=== PATIENT | male | born 1990 | race Hispanic/Latino ===

== ENCOUNTER 2022-06-27 14:19 | Emergency (ER) | payer BC, SELFPAY ==
[2022-06-27 15:02] LABS: Absolute Lymphocytes (CBC) 1.9 K/uL (0.7-4.9); Hematocrit 45.9 % (39.6-49.0); Lymphocytes % 22.2 % (15.3-44.8); MCV 87.5 fL (80-100); RBC Red Blood Cell Count 5.25 M/uL (4.33-5.43)
[2022-06-27 15:03] LABS: Protime INR 0.99
[2022-06-27 15:18] LABS: Albumin 3.6 g/dL (3.4-5.0); Bilirubin Direct 0.2 mg/dL (0-0.2); Bilirubin Total 0.5 mg/dL (0.2-1.0); Magnesium 2.1 mg/dL (1.6-2.4); Potassium 3.9 mEq/L (3.5-5.1); Protein, Total 7.8 g/dL (6.4-8.2); Troponin High Sensitivity 4.7 pg/mL (<58.9)
--- NOTE | 2022-06-27 16:08 | RAD REPORT ---
EXAM DESCRIPTION: Timothy Single View06/27/2022 3:27 pm CLINICAL HISTORY: Chest pain COMPARISON: none FINDINGS: The lungs appear clear of acute infiltrate. The heart is normal size IMPRESSION: No acute abnormalities displayed
[2022-06-27] MEDS ORDERED: ASPIRIN 81 MG CHEWABLE TABLET ONE (16:11)
[2022-06-27] MEDS ORDERED: PANTOPRAZOLE 40 MG INJ ONE (16:11)
--- NOTE | 2022-06-27 16:12 | ER ---
Nurse's Notes [facility] Name: Luis Quesada Age: 32 yrs Sex: Male : 1990 Arrival Date: 06/27/2022 Time: 14:19 Bed 10 Private MD: Diagnosis: Essential (primary) hypertension;Epigastric pain Presentation: 06/27 14:43 Chief complaint: Patient states: Midsternal ''discomfort", increased with stretching, jl7 and high blood pressure since yesterday. Went to clinic and they sent here for 161/110, unknown medication given while at clinic current BP 138/89 in triage. Coronavirus screen: At this time, the client does not indicate any symptoms associated with coronavirus-19. Ebola Screen: No symptoms or risks identified at this time. Initial Sepsis Screen: Does the patient meet any 2 criteria? No. Patient's initial sepsis screen is negative. Does the patient have a suspected source of infection? No. Patient's initial sepsis screen is negative. Risk Assessment: Do you want to hurt yourself or someone else? Patient reports no desire to harm self or others. Onset of symptoms was June 26, 2022. 14:43 Method Of Arrival: Ambulatory jl7 14:43 Acuity: ANSELMO 3 jl7 Triage Assessment: 14:48 General: Appears in no apparent distress. uncomfortable, Behavior is calm, cooperative, jl7 appropriate for age. Pain: Complains of pain in mid-sternal area Pain currently is 1 out of 10 on a pain scale. Neuro: Level of Consciousness is awake, alert, obeys commands, Oriented to person, place, time, situation. Cardiovascular: Patient's skin is warm and dry. Respiratory: Airway is patent Respiratory effort is even, unlabored, Respiratory pattern is regular, symmetrical. Derm: Skin is pink, warm \\T\\ dry. Historical: - Allergies: 14:48 No Known Allergies; jl7 - Home Meds: 14:48 None [Active]; jl7 - PMHx: 14:48 None; jl7 - PSHx: 14:48 None; jl7 - Immunization history:: Adult Immunizations unknown. - Social history:: Smoking status: Patient denies any tobacco usage or history of. Patient uses alcohol, on a daily basis. claims drinking about a 6 pack/day. Screenin:54 [facility] ED Fall Risk Assessment (Adult) History of falling in the last 3 months, mb9 including since admission No falls in past 3 months (0 pts) Confusion or Disorientation No (0 pts) Intoxicated or Sedated No (0 pts) Impaired Gait No (0 pts) Mobility Assist Device Used No (0 pt) Altered Elimination No (0 pt) Score/Fall Risk Level 0 - 2 = Low Risk Oriented to surroundings, Maintained a safe environment, Educated pt \\T\\ family on fall prevention, incl call for assistance when getting out of bed. Abuse screen: Denies threats or abuse. Nutritional screening: No deficits noted. Tuberculosis screening: No symptoms or risk factors identified. Assessment: 14:54 General: Appears uncomfortable, Behavior is cooperative. Pain: Complains of pain in mb9 chest Pain currently is 1 out of 10 on a pain scale. Quality of pain is described as pressure, Pain began suddenly. Neuro: Level of Consciousness is awake, alert, obeys commands, Oriented to person, place, time, situation, Appropriate for age. Cardiovascular: Heart tones S1 S2 present Patient's skin is warm and dry. Rhythm is regular. Cardiovascular:. Respiratory: Airway is patent Respiratory effort is even, unlabored, Respiratory pattern is regular, symmetrical, Breath sounds are clear bilaterally. GI: Abdomen is round non-distended. : No signs and/or symptoms were reported regarding the genitourinary system. Derm: Skin is pink, warm \\T\\ dry. Musculoskeletal: Range of motion: intact in all extremities. 16:09 Reassessment: No changes from previously documented assessment. Patient and/or family mb9 updated on plan of care and expected duration. Pain level reassessed. Patient is alert, oriented x 3, equal unlabored respirations, skin warm/dry/pink. 16:24 Reassessment: Patient states feeling better. Patient states symptoms have improved. mb9 Vital Signs: 14:43 BP 138 / 89; Pulse 78; Resp 15; Temp 98.3; Pulse Ox 99% ; Weight 104.33 kg; Height 5 jl7 ft. 8 in. ; Pain 03/11; 16:09 BP 126 / 78; Pulse 73; Resp 16; Pulse Ox 99% ; mb9 14:43 Body Mass Index 34.97 (104.33 kg, 172.72 cm) [facility] 14:43 Pain Scale: Adult jl7 ED Course: 14:24 Patient arrived in ED. ts1 14:37 Zena Riddle, RN is Primary Nurse. mb9 14:39 Kesha Warren FNP-C is [facility]. snw 14:39 Tevin Greer DO is Attending Physician. snw 14:47 Triage completed. jl7 14:48 Arm band placed on right wrist. jl7 14:53 EKG done, by ED staff, reviewed by Kesha REAL. Inserted saline lock: 20 gauge mb9 in right antecubital area, using aseptic technique. 14:54 Placed in gown. Bed in low position. Call light in reach. Side rails up X 1. Client mb9 placed on continuous cardiac and pulse oximetry monitoring. NIBP monitoring applied. quality assurance monitor final on. 14:54 Basic Metabolic Panel Sent. mb9 14:54 CBC with Diff Sent. mb9 14:54 LFT's Sent. mb9 14:54 Magnesium Sent. mb9 14:54 NT PRO-BNP Sent. mb9 14:54 PT-INR Sent. mb9 14:54 Troponin HS Sent. mb9 14:54 No provider procedures requiring assistance completed. mb9 15:28 XRAY Chest (1 view) In Process Unspecified. EDMS 16:17 IV discontinued, intact, bleeding controlled, No redness/swelling at site. Pressure mb9 dressing applied. Administered Medications: 16:08 Drug: Aspirin PO Chewable Tablet 324 mg Route: PO; mb9 16:09 Drug: Pantoprazole IVP 40 mg Route: IVP; Site: right antecubital; mb9 Medication: 14:54 VIS not applicable for this client. mb9 Outcome: 16:11 Discharge ordered by . snw 16:17 Discharged to home ambulatory. mb9 16:17 Condition: stable 16:17 Discharge instructions given to patient, Instructed on discharge instructions, follow up and referral plans. Demonstrated understanding of instructions, follow-up care, medications, Prescriptions given X 1. 16:24 Patient left the ED. mb9 Signatures: Dispatcher [employer] EDMS Kesha Warren FNP-C FNP-Alvarado Batres RN RN jl7 Zena Riddle, RN RN mb9 Italia Giles PAS PAS ts1
--- NOTE | 2022-06-27 16:12 | EDPHYS ---
Physician Documentation [facility] Name: Luis Quesada Age: 32 yrs Sex: Male : 1990 Arrival Date: 06/27/2022 Time: 14:19 Bed 10 Private MD: ED Physician Tevin Greer HPI: 06/27 16:01 This 32 yrs old Male presents to ER via Ambulatory with complaints of High snw Blood Pressure. 16:01 The patient has elevated blood pressure and discovered this at home, with a home snw device. Onset: The symptoms/episode began/occurred suddenly, yesterday. Modifying factors: The symptoms are aggravated by nothing, pt did not feel normal so took his bp and noted it was elevated 150s SBP. Onset: The symptoms/episode began/occurred acutely. Associated signs and symptoms: Pertinent positives: pt states he has had burning in his chest. Severity of symptoms: At its worst the blood pressure was 160 mm Hg. The patient has not experienced similar symptoms in the past. pt went to the Clinic and they sent him to ED for eval. Historical: - Allergies: 14:48 No Known Allergies; jl7 - Home Meds: 14:48 None [Active]; jl7 - PMHx: 14:48 None; jl7 - PSHx: 14:48 None; jl7 - Immunization history:: Adult Immunizations unknown. - Social history:: Smoking status: Patient denies any tobacco usage or history of. Patient uses alcohol, on a daily basis. claims drinking about a 6 pack/day. ROS: 16:03 Constitutional: Negative for fever, chills, and weight loss, Eyes: Negative for injury, snw pain, redness, and discharge, ENT: Negative for injury, pain, and discharge, Neck: Negative for injury, pain, and swelling, Cardiovascular: Negative for palpitations and edema, positive for chest pain (burning) Respiratory: Negative for shortness of breath, cough, wheezing, and pleuritic chest pain, Abdomen/GI: Negative for abdominal pain, nausea, vomiting, diarrhea, and constipation, Back: Negative for injury and pain, : Negative for injury, bleeding, discharge, and swelling, MS/Extremity: Negative for injury and deformity, Skin: Negative for injury, rash, and discoloration, Neuro: Negative for headache, weakness, numbness, tingling, and seizure, Psych: Negative for depression, anxiety, suicide ideation, homicidal ideation, and hallucinations. Exam: 16:02 Constitutional: This is a well developed, well nourished patient who is awake, alert, snw and in no acute distress. Head/Face: Normocephalic, atraumatic. Eyes: Pupils equal round and reactive to light, extra-ocular motions intact. Lids and lashes normal. Conjunctiva and sclera are non-icteric and not injected. Cornea within normal limits. Periorbital areas with no swelling, redness, or edema. ENT: Nares patent. No nasal discharge, no septal abnormalities noted. Tympanic membranes are normal and external auditory canals are clear. Oropharynx with no redness, swelling, or masses, exudates, or evidence of obstruction, uvula midline. Mucous membranes moist. Neck: Trachea midline, no thyromegaly or masses palpated, and no cervical lymphadenopathy. Supple, full range of motion without nuchal rigidity, or vertebral point tenderness. No Meningismus. Chest/axilla: Normal chest wall appearance and motion. Nontender with no deformity. No lesions are appreciated. Cardiovascular: Regular rate and rhythm with a normal S1 and S2. No gallops, murmurs, or rubs. Normal PMI, no JVD. No pulse deficits. Respiratory: Lungs have equal breath sounds bilaterally, clear to auscultation and percussion. No rales, rhonchi or wheezes noted. No increased work of breathing, no retractions or nasal flaring. Abdomen/GI: Soft, non-tender, with normal bowel sounds. No distension or tympany. No guarding or rebound. No evidence of tenderness throughout. Back: No spinal tenderness. No costovertebral tenderness. Full range of motion. Skin: Warm, dry with normal turgor. Normal color with no rashes, no lesions, and no evidence of cellulitis. MS/ Extremity: Pulses equal, no cyanosis. Neurovascular intact. Full, normal range of motion. Neuro: Awake and alert, GCS 15, oriented to person, place, time, and situation. Cranial nerves II-XII grossly intact. Motor strength 5/5 in all extremities. Sensory grossly intact. Cerebellar exam normal. Normal gait. Psych: Awake, alert, with orientation to person, place and time. Behavior, mood, and affect are within normal limits. Vital Signs: 14:43 BP 138 / 89; Pulse 78; Resp 15; Temp 98.3; Pulse Ox 99% ; Weight 104.33 kg; Height 5 jl7 ft. 8 in. ; Pain 1/10; 16:09 BP 126 / 78; Pulse 73; Resp 16; Pulse Ox 99% ; mb9 14:43 Body Mass Index 34.97 (104.33 kg, 172.72 cm) 7 14:43 Pain Scale: Adult jl7 MDM: 14:39 Patient medically screened. snw 16:15 Data interpreted: Pulse oximetry: on room air is 99 %. Interpretation: normal. Data snw reviewed: vital signs, nurses notes, lab test result(s), EKG, radiologic studies. Counseling: I had a detailed discussion with the patient and/or guardian regarding: the historical points, exam findings, and any diagnostic results supporting the discharge/admit diagnosis, the presence of at least one elevated blood pressure reading (>120/80) during this emergency department visit, lab results, radiology results, the need for outpatient follow up, for definitive care, to return to the emergency department if symptoms worsen or persist or if there are any questions or concerns that arise at home. Response to treatment: the patient's symptoms have mildly improved after treatment. Special discussion: Based on the patient's history, exam, and Dx evaluation, there is no indication for emergent intervention or inpatient Tx. It is understood by the patient/guardian that if the Sx's persist or worsen they need to return immediately for re-evaluation. Based on the patient's Hx, exam, and Dx evaluation, there is no indication for emergent surgery or inpatient Tx. It is understood by the patient/guardian that if the Sx's persist or worsen they need to return immediately for re-evaluation. I have referred the patient to see his PCP for further evaluation of high blood pressure. Based on the history and exam findings, there is no indication for further emergent testing or inpatient evaluation. I discussed with the patient/guardian the need to see the primary care provider for further evaluation of the symptoms. 06/27 14:40 Order name: Basic Metabolic Panel; Complete Time: 15:22 snw 06/27 14:40 Order name: CBC with Diff; Complete Time: 15:22 snw 06/27 14:40 Order name: LFT's; Complete Time: 15:22 snw 06/27 14:40 Order name: Magnesium; Complete Time: 15:22 w 06/27 14:40 Order name: NT PRO-BNP; Complete Time: 15:22 w 06/27 14:40 Order name: PT-INR; Complete Time: 15:04 06/27 14:40 Order name: Troponin HS; Complete Time: 15:22 w 06/27 14:40 Order name: XRAY Chest (1 view); Complete Time: 16:10 06/27 14:40 Order name: EKG; Complete Time: 14:41 06/27 14:40 Order name: Cardiac monitoring; Complete Time: 14:53 06/27 14:40 Order name: EKG - Nurse/Tech; Complete Time: 14:54 06/27 14:40 Order name: IV Saline Lock; Complete Time: 14:54 06/27 14:40 Order name: Labs collected and sent; Complete Time: 14:54 06/27 14:40 Order name: O2 Per Protocol; Complete Time: 14:54 06/27 14:40 Order name: O2 Sat Monitoring; Complete Time: 14:54 snw Administered Medications: 16:08 Drug: Aspirin PO Chewable Tablet 324 mg Route: PO; mb9 16:09 Drug: Pantoprazole IVP 40 mg Route: IVP; Site: right antecubital; mb9 Disposition: 19:34 Co-signature as Attending Physician, Tevin VASQUEZ was immediately available on-site ms3 in the Emergency Department for consultation in the care of the patient. Disposition Summary: 06/27/22 16:11 Discharge Ordered Location: Home snw Condition: Stable snw Diagnosis - Essential (primary) hypertension snw - Epigastric pain snw Followup: snw - With: Emergency Department - When: As needed - Reason: Worsening of condition Followup: snw - With: Private Physician - When: 2 - 3 days - Reason: Recheck today's complaints, Continuance of care, Re-evaluation by your physician Discharge Instructions: - Discharge Summary Sheet snw - Food Choices for Gastroesophageal Reflux Disease, Adult snw - Gastroesophageal Reflux Disease, Adult snw - Hypertension, Adult snw - DASH Eating Plan snw - Rehydration, Adult snw - Managing Your Hypertension snw - Form - Blood Pressure Record Sheet snw Forms: - Work release form snw - Medication Reconciliation Form snw - Thank You Letter snw - Antibiotic Education snw - Prescription Opioid Use snw Prescriptions: - Protonix 40 mg Oral Tablet - take 1 tablet by ORAL route once daily; 30 tablet; Refills: 0, Product snw Selection Permitted Signatures: Dispatcher [employer] EDMS Kesha Warren FNP-C [employer]nw Alvarado Ritter RN RN jl7 Tevin Greer DO DO ms3 Zena Riddle RN RN mb9
[2022-06-27 16:29] VITALS: TEMP 98.3; O2SAT 99
[2022-06-27 16:31] VITALS: BP 126/78
--- NOTE | 2022-06-28 15:20 | EKG ---
Test Date: 2022-06-27 Test Time: 14:45:19 Plastic Printer: MB MEASUREMENT RESULTS: Intervals: Rate: 76 CA: 164 QRSD: 80 QT: 358 QTc: 402 [place]: P: 31 CA: 164 QRS: 41 T: 21 INTERPRETIVE STATEMENTS: Normal sinus rhythm Normal ECG No previous ECG available for comparison Electronically Signed On 06-28-22 15:19:41 CDT by Jonnie Sinha
== END 2022-06-27 16:24 | disposition home or self-care (01) ==
LOC: ER 14:19
DX: I10 Essential (primary) hypertension (principal); R10.13 Epigastric pain
CPT/HCPCS: 36415; 71045; 80048; 80076; 83735; 83880; 84484; 85025; 85610; 93005; 96374; 99285; C9113